=== PATIENT | female | born 1955 | race Caucasian/White ===

== ENCOUNTER 2019-10-26 07:46 | Emergency (ER) | payer MEDICARE, MEDICAID ==
[~2019-10-26] VITALS: Ht 154.9 cm; Wt 62.7 kg
[~2019-10-26 07:46] MED LIST: ACET-1 PO; ASPI-1265 PO; ATRIN NAS; BENA5TAB6 PO; DULO-31 PO; ENOX40DI11 SQ; ESTR0.5T PO; LEVO100T PO; POTA10TA10 PO; TOP100T PO; TRIA1CAP6 PO; WALKERFR
[2019-10-26 08:25] LABS: BASOPHILS % (AUTO) 0.5 % (0-1); EOSINOPHILS # (AUTO) 0.1 X10'3 (0-0.9); EOSINOPHILS % (AUTO) 1.4 % (0-6); HEMATOCRIT 36.8 % (35.0-45.0); HEMOGLOBIN 12.4 g/dl (12.0-16.0); LYMPHOCYTES # (AUTO) 1.8 X10'3 (1.1-4.8); LYMPHOCYTES % (AUTO) 40.5 % (21-51); MEAN CORPUSCULAR HEMOGLOBIN 30.7 PG (27.0-31.0); MEAN CORPUSCULAR HGB CONC 33.7 g/dL (33.0-36.5); MEAN CORPUSCULAR VOLUME 91.1 FL (78-98); MEAN PLATELET VOLUME 8.2 FL (7.4-10.4); MONOCYTES # (AUTO) 0.4 X10'3 (0-0.9); MONOCYTES % (AUTO) 9.4 % (2-12); NEUTROPHILS # (AUTO) 2.1 X10'3 (1.8-7.7); NEUTROPHILS % (AUTO) 48.2 % (42-75); PLATELET COUNT 207 X10'3 (140-440); RED BLOOD COUNT 4.04 X10'6 (4.20-5.60); RED CELL DISTRIBUTION WIDTH 13.7 % (11.5-14.5); WHITE BLOOD COUNT 4.4 X10'3 (4.5-11.0)
[2019-10-26 08:31] LABS: ALANINE AMINOTRANSFERASE 22 U/L (12-78); ALBUMIN 3.7 G/DL (3.4-5.0); ALBUMIN/GLOBULIN RATIO 1.1 (1.1-1.5); ALKALINE PHOSPHATASE 48 IU/L (46-116); ANION GAP 10 (8-16); ASPARTATE AMINO TRANSFERASE 17 U/L (10-37); BILIRUBIN,TOTAL 0.3 MG/DL (0.1-1.0); BLOOD UREA NITROGEN 11 MG/DL (7-18); BUN/CREATININE RATIO 11.2 (6.6-38.0); CALCIUM 8.3 MG/DL (8.5-10.1); CHLORIDE 108 MMOL/L (99-107); CREATININE 0.98 MG/DL (0.40-0.90); GLUCOSE 88 MG/DL (70-104); LIPASE 119 U/L (73-393); POTASSIUM 3.8 MMOL/L (3.5-5.1); SODIUM 144 MMOL/L (135-145); eGFR 57 ML/MIN
--- NOTE | 2019-10-26 08:37 | NUR ---
Patient given 1000 mL of water to drink per MD orders due to ultrasound needing patient to have a full bladder for test. Patient aware and will drink water and notify when she has to go void. Will notify ultrasound when patient ready.
--- NOTE | 2019-10-26 08:47 | NUR ---
Patient states that she feels her bladder is full. dialysis equipment technician paged for scan.
--- NOTE | 2019-10-26 08:48 | NUR ---
bomb technician at bedside at this time.
[2019-10-26] MEDS ORDERED: iohexol 300mg/ml 100ml inj. ONE (09:08)
[2019-10-26 09:25] LABS: CLARITY,URINE CLEAR (Clear); COLOR,URINE YELLOW (Yellow); GLUCOSE, URINE NEGATIVE (Neg); KETONES,URINE NEGATIVE (Neg); LEUKOCYTE ESTERASE ,URINE TRACE (Neg); NITRITES, URINE NEGATIVE (Neg); OCCULT BLOOD,URINE NEGATIVE (Neg); PH,URINE 7.5 (4.8-8.0); PROTEIN,URINE NEGATIVE (Neg); UA COLLECTION TYPE CLN CATCH MIDSTREAM; UROBILINOGEN,URINE 0.2 E.U/dL (0.2-1.0)
[2019-10-26 09:37] LABS: SQUAMOUS EPITHELIAL CELL,UR FEW /LPF (FEW)
[2019-10-26 09:38] LABS: BACTERIA,URINE 1+ /HPF (Neg); RBC,URINE NONE SEEN /HPF (0-2); WBC,URINE 0-4 /HPF (0-4)
--- NOTE | 2019-10-26 10:07 | NUR ---
Pt returned from CT. No change in condition. This RN intiated IV prior to scan after failed attempt by food equipment service technician.
[2019-10-26 11:16] VITALS: BP 95/64
== END 2019-10-26 11:18 | disposition home or self-care (01) ==
LOC: ER 07:47
DX: N93.9 Abnormal uterine and vaginal bleeding, unspecified (principal); K59.00 Constipation, unspecified; N28.9 Disorder of kidney and ureter, unspecified; Z90.49 Acquired absence of other specified parts of digestive tract; Z90.710 Acquired absence of both cervix and uterus; Z88.2 Allergy status to sulfonamides; Z88.5 Allergy status to narcotic agent; Z88.8 Allergy status to other drugs, medicaments and biological substances; Z79.82 Long term (current) use of aspirin; Z79.899 Other long term (current) drug therapy
CPT/HCPCS: 36415; 74177; 76856; 80053; 81001; 83690; 85025; 87088; 99285; Q9967

== ENCOUNTER 2020-06-19 18:44 | Emergency (ER) | payer OTHER, MEDICARE, MEDICAID ==
[~2020-06-19] VITALS: Ht 157.5 cm; Wt 70.5 kg
[2020-06-19 20:52] LABS: CLARITY,URINE CLEAR (Clear); COLOR,URINE YELLOW (Yellow); GLUCOSE, URINE NEGATIVE (Neg); KETONES,URINE NEGATIVE (Neg); LEUKOCYTE ESTERASE ,URINE NEGATIVE (Neg); NITRITES, URINE NEGATIVE (Neg); OCCULT BLOOD,URINE NEGATIVE (Neg); PROTEIN,URINE NEGATIVE (Neg); UROBILINOGEN,URINE 0.2 E.U/dL (0.2-1.0)
[2020-06-19 21:07] VITALS: BP 93/47
[2020-06-19] MEDS ORDERED: ketorolac trometh. 30mg/ml inj. IM ONE ×2 (21:20→21:45)
[2020-06-19 21:29] LABS: UA COLLECTION TYPE URINAL
[2020-06-19] MEDS ORDERED: cyclobenzaprine 10mg tablet PO ONE (21:45)
[2020-06-19] MEDS ORDERED: CYCL-1 PO (22:13)
== END 2020-06-19 22:42 | disposition home or self-care (01) ==
LOC: ER 18:45
DX: S39.012A Strain of muscle, fascia and tendon of lower back, initial encounter (principal); M19.90 Unspecified osteoarthritis, unspecified site; Z90.49 Acquired absence of other specified parts of digestive tract; Z90.710 Acquired absence of both cervix and uterus; Z88.2 Allergy status to sulfonamides; Z88.6 Allergy status to analgesic agent; Z79.899 Other long term (current) drug therapy; Z79.82 Long term (current) use of aspirin; X58.XXXA Exposure to other specified factors, initial encounter; Y93.89 Activity, other specified; Y92.89 Other specified places as the place of occurrence of the external cause; Y99.8 Other external cause status
CPT/HCPCS: 81003; 96372; 99283; J1885

== ENCOUNTER 2023-03-15 16:41 | Emergency (ER) | payer MEDICAID, MEDICARE, OTHER ==
[~2023-03-15] VITALS: Ht 154.9 cm; Wt 78.7 kg
[~2023-03-15 16:41] MED LIST changes: +BENA5TAB26 PO; -BENA5TAB6 PO; +CYCL-1 PO; +POTA-188 PO; -POTA10TA10 PO; -TRIA1CAP6 PO; +TRIA1CAP88 PO
[2023-03-15] MEDS ORDERED: ketorolac tromethamine 15mg/ml inj. IM ONE (18:00)
[2023-03-15] MEDS ORDERED: IBUP-1984 PO (19:10)
[2023-03-15 19:32] VITALS: BP 156/53; PULSE 67; RESP 16; TEMP 97.8; O2SAT 98
== END 2023-03-15 19:34 | disposition home or self-care (01) ==
LOC: ER 16:42
DX: M25.561 Pain in right knee (principal); M19.90 Unspecified osteoarthritis, unspecified site; Z88.2 Allergy status to sulfonamides; Z88.6 Allergy status to analgesic agent; Z79.82 Long term (current) use of aspirin; Z79.899 Other long term (current) drug therapy; Z90.49 Acquired absence of other specified parts of digestive tract; Z90.710 Acquired absence of both cervix and uterus
CPT/HCPCS: 73560; 96372; 99283; J1885; A6449

== ENCOUNTER 2023-06-23 16:37 | Emergency (ER) | payer MEDICARE, MEDICAID ==
[~2023-06-23] VITALS: Ht 154.9 cm; Wt 79.2 kg
[~2023-06-23 16:37] MED LIST changes: -ESTR0.5T PO; +ESTR0.5T36 PO
[2023-06-23 16:49] VITALS: BP 147/56; PULSE 79; TEMP 98.1; O2SAT 99
[2023-06-23 17:26] LABS: BASOPHILS % (AUTO) 0.3 % (0-1); EOSINOPHILS # (AUTO) 0.2 X10'3 (0-0.9); EOSINOPHILS % (AUTO) 1.6 % (0-6); HEMATOCRIT 38.3 % (35.0-45.0); HEMOGLOBIN 12.7 g/dl (12.0-16.0); LYMPHOCYTES # (AUTO) 2.7 X10'3 (1.1-4.8); LYMPHOCYTES % (AUTO) 22.3 % (21-51); MEAN CORPUSCULAR HEMOGLOBIN 30.3 PG (27.0-31.0); MEAN CORPUSCULAR HGB CONC 33.2 g/dL (33.0-36.5); MEAN CORPUSCULAR VOLUME 91.3 FL (78-98); MEAN PLATELET VOLUME 7.9 FL (7.4-10.4); MONOCYTES # (AUTO) 0.7 X10'3 (0-0.9); MONOCYTES % (AUTO) 5.6 % (2-12); NEUTROPHILS # (AUTO) 8.3 X10'3 (1.8-7.7); NEUTROPHILS % (AUTO) 70.2 % (42-75); PLATELET COUNT 297 X10'3 (140-440); RED CELL DISTRIBUTION WIDTH 12.9 % (11.5-14.5); WHITE BLOOD COUNT 11.9 X10'3 (4.5-11.0)
[2023-06-23 17:40] LABS: ALANINE AMINOTRANSFERASE 17 U/L (12-78); ALBUMIN 3.8 G/DL (3.4-5.0); ALBUMIN/GLOBULIN RATIO 1.1 (1.1-1.5); ALKALINE PHOSPHATASE 50 IU/L (46-116); ANION GAP 12 (8-16); ASPARTATE AMINO TRANSFERASE 14 U/L (10-37); BILIRUBIN,TOTAL 0.6 MG/DL (0.1-1.0); BLOOD UREA NITROGEN 18 MG/DL (7-18); BUN/CREATININE RATIO 14.1 (10.0-20.0); CALCIUM 8.6 MG/DL (8.5-10.1); CHLORIDE 103 MMOL/L (99-107); CREATININE 1.28 MG/DL (0.40-0.90); GLUCOSE 106 MG/DL (70-104); POTASSIUM 4.3 MMOL/L (3.5-5.1); SODIUM 141 MMOL/L (135-145); TOTAL PROTEIN 7.4 G/DL (6.4-8.2); eCRCL 31 ML/MIN; eGFR 41 ML/MIN
[2023-06-23] MEDS: normal saline 1000ML IV soln IVB ONE (18:15)
[2023-06-23] MEDS ORDERED: METR-159 PO (19:48)
[2023-06-23 19:57] VITALS: RESP 18
== END 2023-06-23 20:02 | disposition home or self-care (01) ==
LOC: ER 16:37
DX: R10.84 Generalized abdominal pain (principal); R11.0 Nausea; R19.7 Diarrhea, unspecified
CPT/HCPCS: 36415; 74176; 80053; 85025; 99284

== ENCOUNTER 2023-07-31 17:45 | Emergency (ER) | payer MEDICARE, MEDICAID ==
[~2023-07-31] VITALS: Ht 154.9 cm; Wt 77.3 kg
[2023-07-31 18:08] VITALS: BP 153/49; PULSE 78; RESP 18; O2SAT 98
[2023-07-31] MEDS: dexamethasone sod phosphate 10mg/ml inj IM STA (18:45)
[2023-07-31] MEDS: diphenhydrAMINE 50 mg/ml inj IM ONE (18:45)
[2023-07-31] MEDS ORDERED: CETI-91 PO (19:21)
[2023-07-31] MEDS ORDERED: FLUT16SP2 BOTHNARES (19:21)
[2023-07-31 20:14] VITALS: TEMP 98
== END 2023-07-31 19:37 | disposition home or self-care (01) ==
LOC: ER 17:46
DX: J30.9 Allergic rhinitis, unspecified (principal); Z88.2 Allergy status to sulfonamides; Z90.49 Acquired absence of other specified parts of digestive tract; Z90.710 Acquired absence of both cervix and uterus
CPT/HCPCS: 70220; 71045; 96372; 99284; J1100; J1200

== ENCOUNTER 2023-10-02 16:33 | Emergency (ER) | payer MEDICARE, MEDICAID ==
[~2023-10-02] VITALS: Ht 154.9 cm; Wt 74.5 kg
[~2023-10-02 16:33] MED LIST changes: +CETI-91 PO; +FLUT16SP2 BOTHNARES
[2023-10-02 17:13] VITALS: BP 135/45; PULSE 72; RESP 16; TEMP 97.3; O2SAT 97
== END 2023-10-02 22:47 | disposition left against medical advice (07) ==
LOC: ER 16:34
DX: L50.8 Other urticaria (principal); Z53.21 Procedure and treatment not carried out due to patient leaving prior to being seen by health care provider